=== PATIENT | male | born 1990 | race Caucasian/White ===

== ENCOUNTER 2021-09-16 14:10 | Emergency (ER) | payer BC ==
--- NOTE | 2021-09-16 14:52 | EDM.PDOC ---
ED HPI GENERAL MEDICAL PROBLEM - General Chief Complaint: ENT Problem Stated Complaint: SINUS INFECTION Time Seen by Provider: 09/16/21 14:45 Source of Information: Reports: Patient History Limitations: Reports: No Limitations - History of Present Illness INITIAL COMMENTS - FREE TEXT/NARRATIVE: pt has had nasal stuffiness runny eyes. He coughes up some thick mucous no fever. He did have plugging of the left ear. Onset: Gradual, Other (last 3-4 days. ) Duration: Hour(s): Location: Reports: Face, Chest Associated Symptoms: Reports: Cough - Related Data Allergies Allergy/AdvReac Type Severity Reaction Status Date / Time amoxicillin [From Augmentin] Allergy Rash Verified 09/16/21 14:48 clavulanic acid Allergy Rash Verified 09/16/21 14:48 [From Augmentin] Home Meds: Home Meds NK [No Known Home Meds] 09/16/21 [History] ED ROS ENT - Review of Systems Review Of Systems: See Below Constitutional: Reports: No Symptoms HEENT: Reports: Rhinitis, Sinus Problem Respiratory: Reports: No Symptoms Cardiovascular: Reports: No Symptoms Endocrine: Reports: No Symptoms GI/Abdominal: Reports: No Symptoms : Reports: No Symptoms Musculoskeletal: Reports: No Symptoms ED EXAM, ENT - Physical Exam Exam: See Below Text/Narrative:: pt arrived with a 4-5 day history of nasal stuffiness. His left ear was plugged but is better now. Exam Limited By: No Limitations General Appearance: Alert, Anxious, Other ( left ear has fluid behind the drum with a poor lite reflex. ) Ears: Other ( rt drum is normal ) Nose: Other (some swelling of the mucous membranes) Mouth/Throat: Normal Inspection, Other (pt has mild tenderness over the sinuses--maxillary) Head: Atraumatic Neck: Normal Inspection Respiratory/Chest: No Respiratory Distress Course - Vital Signs Last Recorded V/S: Last Vital Signs Temp 36.6 C 09/16/21 14:53 Pulse 106 H 09/16/21 14:53 Resp 16 09/16/21 14:53 BP 122/74 09/16/21 14:53 Pulse Ox 98 09/16/21 14:53 Departure - Departure Time of Disposition: 14:59 Disposition: Home, Self-Care 01 Condition: Fair Clinical Impression: Acute serous otitis media, left ear, Sinusitis - Discharge Information Referrals: PCP,None [Primary Care Provider] - Forms: ED Department Discharge Care Plan Goals: cool mist humidifier, use nasal sprays for no more than 3-4 more days, zithromax 500mg now and the 250 daily for the next 8 days. Sepsis Event Note (ED) - Focused Exam Vital Signs: Vital Signs Temp Pulse Resp BP Pulse Ox 09/16/21 14:53 36.6 C 106 H 16 122/74 98
== END 2021-09-16 15:17 | disposition home or self-care (01) ==
LOC: JP.ED 14:10
DX: J32.9 Chronic sinusitis, unspecified (principal); H65.02 Acute serous otitis media, left ear; Z88.0 Allergy status to penicillin
CPT/HCPCS: 99283